=== PATIENT | female | born 1950 | race African-American/Black ===

== ENCOUNTER → 2017-02-08 | Outpatient (CLI) | payer BC, OTHER | LOC: RAD 10:43 | DX: Z12.31 Encounter for screening mammogram for malignant neoplasm of breast (principal) ==

== ENCOUNTER → 2018-02-14 | Outpatient (CLI) | payer BC, OTHER | LOC: RAD 10:07 | DX: Z12.31 Encounter for screening mammogram for malignant neoplasm of breast (principal) ==

== ENCOUNTER → 2019-02-27 | Outpatient (CLI) | payer BC, OTHER | LOC: BC 12:02 | DX: Z12.31 Encounter for screening mammogram for malignant neoplasm of breast (principal) ==

== ENCOUNTER → 2020-04-22 | Outpatient (CLI) | payer OTHER | LOC: BC 08:19 | PROVIDERS: ATTEND Family Medicine | DX: Z12.31 Encounter for screening mammogram for malignant neoplasm of breast (principal) ==

== ENCOUNTER → 2021-04-16 | Outpatient (CLI) | payer OTHER | LOC: BC 14:10 | PROVIDERS: ATTEND Family Medicine | DX: Z12.31 Encounter for screening mammogram for malignant neoplasm of breast (principal); N64.89 Other specified disorders of breast ==